=== PATIENT | male | born 1960 | race Caucasian/White ===

== ENCOUNTER 2018-02-12 17:39 | Inpatient (IN) | payer MEDICAID ==
[~2018-02-12] VITALS: Ht 180.3 cm; Wt 62.4 kg
[2018-02-12] MEDS ORDERED: methylPREDNISolone SOD SUCC 125 MG/2 ML ONE (18:11)
[2018-02-12] MEDS ORDERED: ALBUTEROL/IPRATROPIUM 2.5MG/0.5MG, 3 ML ONE (18:14)
[2018-02-12] MEDS ORDERED: ALBUTEROL SULFATE 2.5MG/0.5ML ONE (18:19)
[2018-02-12] MEDS ORDERED: IPRATROPIUM 0.5 MG/2.5 ML INHA ONE (18:19)
[2018-02-12 18:26] LABS: BASOPHILS # (AUTO) 0.03 x10^3/uL (0-0.1); BASOPHILS % (AUTO) 0 % (0-1); EOSINOPHILS # (AUTO) 0.07 x10^3/uL (0-0.4); EOSINOPHILS % (AUTO) 1 % (1-7); LYMPHOCYTES # (AUTO) 0.84 x10^3/uL (1-3.4); LYMPHOCYTES % (AUTO) 7 % (22-44); MD NO; MEAN CORPUSCULAR HEMOGLOBIN 32.4 pg (27.5-34.5); MEAN CORPUSCULAR HGB CONC 33.7 g/dL (33.2-36.2); MEAN CORPUSCULAR VOLUME 96.1 fL (81-97); MEAN PLATELET VOLUME 8.1 fL (7.4-10.4); MONOCYTES % (AUTO) 10 % (2-9); NEUTROPHILS # (AUTO) 9.76 x10^3/uL (1.8-6.8); NEUTROPHILS % (AUTO) 82 % (42-75); PLATELET COUNT 273 x10^3/uL (130-400); RED BLOOD COUNT 5.01 x10^6/uL (4.38-5.82); RED CELL DISTRIBUTION WIDTH 14.9 % (9.4-14.8)
[2018-02-12] MEDS ORDERED: ALBUTEROL SULFATE 2.5 MG/3 ML NPPB PRN (18:30)
[2018-02-12] MEDS ORDERED: methylPREDNISolone SOD SUCC 125 MG/2 ML IVP ONE (18:30)
[2018-02-12] MEDS ORDERED: IPRATROPIUM 0.5 MG/2.5 ML INHA NPPB SCH (18:30)
[2018-02-12] MEDS ORDERED: AZITHROMYCIN 500 MG in SODIUM CHLORIDE 0.9% 250 ML IVPB ONE (18:30)
[2018-02-12] MEDS ORDERED: PLEASE ENTER ALLERGIES MC SCH (18:30)
[2018-02-12 18:37] LABS: ALBUMIN 3.6 g/dL (3.4-5.0); ANION GAP 5 mmol/L (5-15); CALCIUM 8.7 mg/dL (8.5-10.1); CHLORIDE 104 mmol/L (98-107); CREATININE 0.85 mg/dL (0.7-1.3)
[2018-02-12 18:41] LABS: TROPONIN I < 0.015 ng/mL (0.000-0.045)
[2018-02-12] MEDS ORDERED: ALBUTEROL INH (19:34)
[2018-02-12] MEDS ORDERED: PRED20TA PO (19:34)
[2018-02-12] MEDS ORDERED: FLUT1DIS5 IH (19:34)
[2018-02-12] MEDS ORDERED: ONDANSETRON 2MG/ML, 2ML IVPush PRN (20:30)
[2018-02-12] MEDS ORDERED: POLYETHYLENE GLYCOL 17 GM PACKET PO PRN (20:30)
[2018-02-12] MEDS ORDERED: GUAIFENESIN/COD200MG-20MG/10ML LIQUID PO PRN (20:30)
[2018-02-12] MEDS ORDERED: ACETAMINOPHEN 325 MG TABLET PO PRN (20:30)
[2018-02-12] MEDS ORDERED: DOCUSATE 100 MG CAPSULE PO PRN (20:30)
[2018-02-12] MEDS: AZITHROMYCIN 500 MG in SODIUM CHLORIDE 0.9% 250 ML IV SCH (20:35)
[2018-02-12] MEDS ORDERED: TEMPLATE NON-FORMULARY MED. (Fluticasone/Salmeterol** (Advair 500-50 Diskus**) 1 PUFF) IH SCH (21:00)
[2018-02-12] MEDS ORDERED: ALBUTEROL/IPRATROPIUM 2.5MG/0.5MG, 3 ML NPPB PRN (21:30)
[2018-02-12 21:36] VITALS: BP 112/75
[2018-02-13 00:43] VITALS: BP 103/71
[2018-02-13] MEDS: CEFTRIAXONE PMX 1GM/50ML 50 ML IV SCH (00:47)
[2018-02-13] MEDS: ENOXAPARIN 40 MG/0.4 ML SQ SCH ×2 (00:47→19:56)
[2018-02-13] MEDS: ALBUTEROL/IPRATROPIUM 2.5MG/0.5MG, 3 ML NPPB SCH ×5 (02:20→22:45)
[2018-02-13] MEDS: methylPREDNISolone SOD SUCC 125 MG/2 ML IVPush SCH ×3 (03:11→19:56)
[2018-02-13 07:34] VITALS: BP 109/68
[2018-02-13] MEDS: BUDESONIDE 0.5 MG/2 ML INHA NPPB SCH ×2 (09:00→20:25)
[2018-02-13] MEDS: SENNA/DOCUSATE TABLET PO SCH (09:01)
[2018-02-13 13:01] VITALS: BP 116/76
[2018-02-13] MEDS ORDERED: ALBUTEROL SULFATE 2.5 MG/3 ML ONE (16:54)
[2018-02-13] MEDS ORDERED: ALBUTEROL SULFATE 2.5 MG/3 ML NPPB PRN (17:00)
[2018-02-13 19:45] VITALS: BP 102/62
[2018-02-13] MEDS: AZITHROMYCIN 500 MG in SODIUM CHLORIDE 0.9% 250 ML IV SCH (19:56)
[2018-02-13] MEDS: GUAIFENESIN ER 600 MG TABLET PO SCH (19:56)
[2018-02-13] MEDS: HYDROcodone/APAP 5/325 TABLET PO PRN (19:59)
[2018-02-13 21:43] VITALS: BP 113/78
[2018-02-14] MEDS: HYDROcodone/APAP 5/325 TABLET PO PRN ×4 (01:10→23:15)
[2018-02-14] MEDS: CEFTRIAXONE PMX 1GM/50ML 50 ML IV SCH (01:10)
[2018-02-14 02:01] VITALS: BP 95/64
[2018-02-14] MEDS: methylPREDNISolone SOD SUCC 125 MG/2 ML IVPush SCH ×3 (03:54→20:09)
[2018-02-14] MEDS: ALBUTEROL/IPRATROPIUM 2.5MG/0.5MG, 3 ML NPPB SCH ×6 (03:55→18:53)
[2018-02-14 07:07] VITALS: BP 127/75
[2018-02-14] MEDS: BUDESONIDE 0.5 MG/2 ML INHA NPPB SCH ×2 (07:45→11:50)
[2018-02-14] MEDS: GUAIFENESIN ER 600 MG TABLET PO SCH ×2 (09:00→20:09)
[2018-02-14] MEDS: SENNA/DOCUSATE TABLET PO SCH (09:00)
[2018-02-14 10:31] LABS: MEAN CORPUSCULAR HEMOGLOBIN 32.1 pg (27.5-34.5); MEAN CORPUSCULAR HGB CONC 33.3 g/dL (33.2-36.2); MEAN CORPUSCULAR VOLUME 96.4 fL (81-97); PLATELET COUNT 256 x10^3/uL (130-400); RED BLOOD COUNT 4.47 x10^6/uL (4.38-5.82); RED CELL DISTRIBUTION WIDTH 14.7 % (9.4-14.8)
[2018-02-14 10:40] LABS: ANION GAP 6 mmol/L (5-15); CALCIUM 8.7 mg/dL (8.5-10.1); CHLORIDE 100 mmol/L (98-107); CREATININE 0.72 mg/dL (0.7-1.3)
[2018-02-14 10:46] LABS: BASOPHILS % (AUTO) 0 % (0-1); EOSINOPHILS % (AUTO) 0 % (1-7); LYMPHOCYTES # (AUTO) 0.35 x10^3/uL (1-3.4); LYMPHOCYTES % (AUTO) 2 % (22-44); MD SCAN; MONOCYTES # (AUTO) 0.56 x10^3/uL (0.2-0.8); MONOCYTES % (AUTO) 4 % (2-9); NEUTROPHILS # (AUTO) 14.43 x10^3/uL (1.8-6.8); NEUTROPHILS % (AUTO) 94 % (42-75)
[2018-02-14 13:00] VITALS: BP 143/93
[2018-02-14 19:26] VITALS: BP 144/90
[2018-02-14] MEDS: ENOXAPARIN 40 MG/0.4 ML SQ SCH (20:09)
[2018-02-14] MEDS: AZITHROMYCIN 500 MG in SODIUM CHLORIDE 0.9% 250 ML IV SCH (20:09)
[2018-02-14] MEDS ORDERED: DIPHENHYDRAMINE 25 MG CAPSULE PO PRN (22:00)
[2018-02-14 22:46] LABS: RAPID INFLUENZA A Negative (Negative); RAPID INFLUENZA B Negative (Negative)
[2018-02-15] MEDS: CEFTRIAXONE PMX 1GM/50ML 50 ML IV SCH (02:29)
[2018-02-15 02:31] VITALS: BP 129/71
[2018-02-15] MEDS: ALBUTEROL/IPRATROPIUM 2.5MG/0.5MG, 3 ML NPPB SCH ×4 (02:51→14:01)
[2018-02-15] MEDS: HYDROcodone/APAP 5/325 TABLET PO PRN ×2 (05:20→09:59)
[2018-02-15] MEDS: methylPREDNISolone SOD SUCC 125 MG/2 ML IVPush SCH (05:20)
[2018-02-15 07:15] VITALS: BP 107/72
[2018-02-15] MEDS: SENNA/DOCUSATE TABLET PO SCH (08:50)
[2018-02-15] MEDS ORDERED: PRED20TA PO (08:54)
[2018-02-15] MEDS ORDERED: CEFD300C37 PO (08:54)
[2018-02-15] MEDS ORDERED: AZIT250T89 PO (08:54)
[2018-02-15] MEDS: BUDESONIDE 0.5 MG/2 ML INHA NPPB SCH (09:00)
[2018-02-15] MEDS: GUAIFENESIN ER 600 MG TABLET PO SCH (09:59)
[2018-02-15 12:54] VITALS: BP 121/89
== END 2018-02-15 16:48 | disposition home or self-care (01) | DRG 189 ==
LOC: EDBD 17:39 → ED 20:01 → EDIP 20:12 → SUATTDRO 20:14 → 3NE 22:21
PROVIDERS: ADMIT Family Medicine; ATTEND Family Medicine
DX: J96.20 Acute and chronic respiratory failure, unspecified whether with hypoxia or hypercapnia (principal); J44.1 Chronic obstructive pulmonary disease with (acute) exacerbation; D72.829 Elevated white blood cell count, unspecified; T38.0X5A Adverse effect of glucocorticoids and synthetic analogues, initial encounter; Z80.6 Family history of leukemia; Z82.49 Family history of ischemic heart disease and other diseases of the circulatory system; Z87.891 Personal history of nicotine dependence; Z99.81 Dependence on supplemental oxygen; Y92.89 Other specified places as the place of occurrence of the external cause
CPT/HCPCS: 36415; 36600; 87400; 99291; J7613; J7620; J7626; J7644; 71045; 80048; 82040; 82803; 84484; 85025; 93005; 94640; 94644; 96365; 96366; 96375; G0378; J0456; J0696; J1650; J2930; J7050; Q0163

== ENCOUNTER 2018-02-15 21:24 | Inpatient (IN) | payer MEDICAID ==
[~2018-02-15] VITALS: Ht 172.7 cm; Wt 65.9 kg
[~2018-02-15 21:24] MED LIST: ALBUTEROL INH; AZIT250T89 PO; CEFD300C37 PO; ETOMIDATE 20 MG/10 ML ONE; FLUT1DIS5 IH; PRED20TA PO; PROPOFOL 10 MG/ML, 100ML IV ONE; SUCCINYLCHOLINE 20 MG/ML, 10ML ONE
[2018-02-15] MEDS ORDERED: SODIUM CHLORIDE 0.9% 1,000 ML IV ONE (21:29)
[2018-02-15] MEDS ORDERED: IPRATROPIUM 0.5 MG/2.5 ML INHA NPPB PRN (21:30)
[2018-02-15] MEDS ORDERED: methylPREDNISolone SOD SUCC 125 MG/2 ML IVP ONE (21:30)
[2018-02-15] MEDS ORDERED: SODIUM CHLORIDE FLUSH 10ML SYR IVF ONE (21:30)
[2018-02-15] MEDS ORDERED: ALBUTEROL 0.5%, 20ML NPPB SCH (21:30)
[2018-02-15] MEDS ORDERED: LORazepam 2 MG/ML, 1ML IVP ONE (21:30)
[2018-02-15] MEDS ORDERED: methylPREDNISolone SOD SUCC 125 MG/2 ML ONE (21:31)
[2018-02-15] MEDS ORDERED: ALBUTEROL SULFATE 2.5 MG/3 ML ONE (21:36)
[2018-02-15] MEDS ORDERED: ALBUTEROL SULFATE 2.5 MG/3 ML NPPB SCH (21:45)
[2018-02-15] MEDS ORDERED: LORazepam 2 MG/ML, 1ML ONE (21:45)
[2018-02-15 22:01] LABS: MEAN CORPUSCULAR HEMOGLOBIN 32.4 pg (27.5-34.5); MEAN CORPUSCULAR HGB CONC 33.1 g/dL (33.2-36.2); MEAN CORPUSCULAR VOLUME 97.6 fL (81-97); MEAN PLATELET VOLUME 8.2 fL (7.4-10.4); PLATELET COUNT 332 x10^3/uL (130-400); RED BLOOD COUNT 4.73 x10^6/uL (4.38-5.82); RED CELL DISTRIBUTION WIDTH 15.3 % (9.4-14.8)
[2018-02-15] MEDS ORDERED: PROPOFOL 100 ML IV PRN (22:07)
[2018-02-15 22:13] LABS: ALBUMIN 3.6 g/dL (3.4-5.0); ANION GAP 3 mmol/L (5-15); CALCIUM 8.8 mg/dL (8.5-10.1); CHLORIDE 98 mmol/L (98-107)
[2018-02-15 22:18] LABS: ALANINE AMINOTRANSFERASE 43 U/L (12-78); ALKALINE PHOSPHATASE 70 U/L (45-117); BILIRUBIN,TOTAL 0.4 mg/dL (0.2-1.0); CREATININE 0.77 mg/dL (0.7-1.3); TOTAL PROTEIN 7.3 g/dL (6.4-8.2); TROPONIN I < 0.015 ng/mL (0.000-0.045)
[2018-02-15 22:23] LABS: BASOPHILS # (AUTO) 0.01 x10^3/uL (0-0.1); BASOPHILS % (AUTO) 0 % (0-1); EOSINOPHILS % (AUTO) 0 % (1-7); LYMPHOCYTES # (AUTO) 0.81 x10^3/uL (1-3.4); LYMPHOCYTES % (AUTO) 5 % (22-44); MD SCAN; MONOCYTES % (AUTO) 10 % (2-9); NEUTROPHILS # (AUTO) 14.05 x10^3/uL (1.8-6.8); NEUTROPHILS % (AUTO) 85 % (42-75)
[2018-02-15] MEDS ORDERED: ETOMIDATE 20 MG/10 ML IV ONE (22:30)
[2018-02-15] MEDS ORDERED: SUCCINYLCHOLINE 20 MG/ML, 10ML IVPush ONE (22:30)
[2018-02-15] MEDS ORDERED: POLYETHYLENE GLYCOL 17 GM PACKET PO PRN (23:00)
[2018-02-15] MEDS ORDERED: PROMETHAZINE 25 MG/ML, 1ML IM PRN (23:00)
[2018-02-15] MEDS ORDERED: ACETAMINOPHEN 325 MG TABLET PO PRN (23:00)
[2018-02-15] MEDS ORDERED: DOCUSATE 100 MG CAPSULE PO PRN (23:00)
[2018-02-15] MEDS ORDERED: ONDANSETRON 2MG/ML, 2ML IVPush PRN (23:00)
[2018-02-15] MEDS ORDERED: morphine SULFATE 10 MG/ML, 1ML IVPush PRN (23:00)
[2018-02-15] MEDS ORDERED: LABETALOL 5MG/ML, 20ML IVPush PRN (23:00)
[2018-02-15] MEDS ORDERED: hydrALAzine 20 MG/ML, 1ML IVPush PRN (23:00)
[2018-02-15] MEDS ORDERED: BISACODYL 10 MG SUPP PR PRN ×2 (23:00→23:30)
[2018-02-15] MEDS ORDERED: ONDANSETRON ODT 4 MG PO PRN (23:00)
[2018-02-15] MEDS ORDERED: NOREPINEPHRINE 4 MG in SODIUM CHLORIDE 0.9% 246 ML IV PRN (23:18)
[2018-02-15] MEDS ORDERED: FENTANYL PF 2,500 MCG in SODIUM CHLORIDE 0.9% 200 ML IV PRN (23:18)
[2018-02-15] MEDS ORDERED: SODIUM CHLORIDE 0.9% 1,000 ML IV SCH (23:18)
[2018-02-15] MEDS ORDERED: DEXTROSE 50%, 50ML SYRINGE IVPush PRN (23:30)
[2018-02-15] MEDS ORDERED: HEPARIN 5,000 UNITS/ML, 1ML SQ SCH (23:30)
[2018-02-15] MEDS ORDERED: LIDOCAINE-MPF 1%, 2ML ENDO PRN (23:30)
[2018-02-15] MEDS ORDERED: DEXTROSE 4 GM TAB.CHEW PO PRN (23:30)
[2018-02-15] MEDS: IPRATROPIUM 0.5 MG/2.5 ML INHA INLINE SCH (23:30)
[2018-02-15] MEDS ORDERED: GLUCAGON 1 MG IM PRN (23:30)
[2018-02-15] MEDS ORDERED: ALBUTEROL 0.5%, 20ML NPPBCONT SCH (23:30)
[2018-02-15] MEDS ORDERED: Albuterol Continuous Neb. Aerogen Syringe 50mg/60ml INLINE PRN (23:30)
[2018-02-15] MEDS ORDERED: SENNA/DOCUSATE TABLET NG PRN (23:30)
[2018-02-15] MEDS ORDERED: ALBUMIN HUMAN 5% 500 ML IV ONE (23:30)
[2018-02-15] MEDS ORDERED: SENNOSIDES 8.8 MG/5 ML ORAL SOL NG PRN (23:30)
[2018-02-15] MEDS ORDERED: PHARMACY MAY ADJ FOR RENAL FX MC SCH (23:30)
[2018-02-15] MEDS ORDERED: SODIUM CHLORIDE 0.9% 1,000ML IVBOLUS ONE (23:30)
[2018-02-15] MEDS ORDERED: LACTULOSE 20 GM/30 ML UDC NG PRN (23:30)
[2018-02-15] MEDS: ALBUTEROL/IPRATROPIUM 2.5MG/0.5MG, 3 ML INLINE SCH (23:30)
[2018-02-15] MEDS: DOXYCYCLINE 100 MG in DEXTROSE 5% 250 ML IV SCH (23:43)
[2018-02-15] MEDS: SODIUM CHLORIDE 0.9% 1,000 ML IV SCH (23:43)
[2018-02-15] MEDS ORDERED: PHARMACOKINETIC MONITORING MC PRN (23:45)
[2018-02-15] MEDS ORDERED: PHARMACOKINETIC CONSULTATION MC ONE (23:45)
[2018-02-15] MEDS: FAMOTIDINE 20 MG/2 ML IVPush SCH (23:45)
[2018-02-15] MEDS: HEPARIN 5,000 UNITS/ML, 1ML SQ SCH (23:46)
[2018-02-16] MEDS ORDERED: VANCOMYCIN 1,200 MG in SODIUM CHLORIDE 0.9% 250 ML IV ONE
[2018-02-16] MEDS ORDERED: VANCOMYCIN PER PHARMACY MC PRN
[2018-02-16 00:04] LABS: BASOPHILS % (AUTO) 0 % (0-1); EOSINOPHILS # (AUTO) 0.11 x10^3/uL (0-0.4); EOSINOPHILS % (AUTO) 1 % (1-7); LYMPHOCYTES # (AUTO) 0.18 x10^3/uL (1-3.4); LYMPHOCYTES % (AUTO) 1 % (22-44); MD NO; MEAN CORPUSCULAR HEMOGLOBIN 32.3 pg (27.5-34.5); MEAN PLATELET VOLUME 7.9 fL (7.4-10.4); MONOCYTES # (AUTO) 0.62 x10^3/uL (0.2-0.8); MONOCYTES % (AUTO) 5 % (2-9); NEUTROPHILS # (AUTO) 12.57 x10^3/uL (1.8-6.8); NEUTROPHILS % (AUTO) 93 % (42-75); PLATELET COUNT 261 x10^3/uL (130-400); RED BLOOD COUNT 4.29 x10^6/uL (4.38-5.82); RED CELL DISTRIBUTION WIDTH 14.8 % (9.4-14.8)
[2018-02-16 00:14] LABS: INTERNATIONAL NORMALIZED RATIO 1.01 (0.93-1.1); PROTHROMBIN TIME 10.7 Seconds (9.6-11.5)
[2018-02-16 00:16] LABS: ACETAMINOPHEN < 2 mcg/mL (10-30); ANION GAP 3 mmol/L (5-15); CALCIUM 8.2 mg/dL (8.5-10.1); CHLORIDE 100 mmol/L (98-107); CREATININE 0.92 mg/dL (0.7-1.3); SALICYLATE LEVEL < 1.7 mg/dL (2.8-20.0); TRIGLYCERIDES 88 mg/dL (50-200)
[2018-02-16 00:20] LABS: TROPONIN I < 0.015 ng/mL (0.000-0.045)
[2018-02-16 00:34] LABS: HEMOGLOBIN A1C 5.9 % (4.2-6.3)
[2018-02-16] MEDS: FENTANYL PF 100 MCG/2ML IVPush PRN ×5 (00:40→22:48)
[2018-02-16 00:42] LABS: FREE T4 (FREE THYROXINE) 0.99 ng/dL (0.76-1.46)
[2018-02-16] MEDS: PIPERACILLIN/TAZO/PMX 3.375GM 50 ML IV SCH ×2 (00:42→06:08)
[2018-02-16 01:40] VITALS: BP 98/56
[2018-02-16] MEDS: IPRATROPIUM 0.5 MG/2.5 ML INHA INLINE SCH (03:30)
[2018-02-16] MEDS: methylPREDNISolone SOD SUCC 125 MG/2 ML IVPush SCH ×4 (03:35→20:58)
[2018-02-16] MEDS: PROPOFOL 100 ML IV PRN ×4 (03:38→19:15)
[2018-02-16] MEDS: ALBUTEROL/IPRATROPIUM 2.5MG/0.5MG, 3 ML INLINE SCH ×6 (03:40→22:31)
[2018-02-16 04:00] VITALS: BP 92/62
[2018-02-16 05:50] LABS: BASOPHILS % (AUTO) 0 % (0-1); EOSINOPHILS # (AUTO) 0.16 x10^3/uL (0-0.4); EOSINOPHILS % (AUTO) 1 % (1-7); LYMPHOCYTES # (AUTO) 0.37 x10^3/uL (1-3.4); LYMPHOCYTES % (AUTO) 3 % (22-44); MD NO; MEAN CORPUSCULAR HEMOGLOBIN 32.6 pg (27.5-34.5); MEAN CORPUSCULAR VOLUME 98.8 fL (81-97); MEAN PLATELET VOLUME 8.5 fL (7.4-10.4); MONOCYTES # (AUTO) 0.79 x10^3/uL (0.2-0.8); MONOCYTES % (AUTO) 6 % (2-9); NEUTROPHILS # (AUTO) 11.06 x10^3/uL (1.8-6.8); NEUTROPHILS % (AUTO) 89 % (42-75); PLATELET COUNT 244 x10^3/uL (130-400); RED BLOOD COUNT 4.11 x10^6/uL (4.38-5.82); RED CELL DISTRIBUTION WIDTH 15.1 % (9.4-14.8)
[2018-02-16 06:11] LABS: ALANINE AMINOTRANSFERASE 43 U/L (12-78); ALBUMIN 3.1 g/dL (3.4-5.0); ANION GAP 10 mmol/L (5-15); CHLORIDE 102 mmol/L (98-107); CHOLESTEROL, TOTAL 127 mg/dL (140-239); CREATININE 1.05 mg/dL (0.7-1.3)
[2018-02-16 06:16] LABS: ALKALINE PHOSPHATASE 53 U/L (45-117); BILIRUBIN,TOTAL 0.6 mg/dL (0.2-1.0); CHOL/HDL RATIO 2.1; HDL CHOL % 48 % (26-37); HDL CHOLESTEROL (DIRECT) 61 mg/dL (40-60); LDL CHOLESTEROL,CALCULATED 44 mg/dL (54-169); LDL/HDL RATIO 0.7 (0.5-3.0); TOTAL PROTEIN 5.9 g/dL (6.4-8.2); TRIGLYCERIDES 109 mg/dL (50-200); TROPONIN I < 0.015 ng/mL (0.000-0.045); VLDL CHOLESTEROL 22 mg/dL (0-25)
[2018-02-16] MEDS ORDERED: INSULIN REGULAR 100 UNITS/ML, 3ML VIAL SQ-INSULIN SCH (07:00)
[2018-02-16] MEDS: FAMOTIDINE 20 MG/2 ML IVPush SCH ×2 (08:51→20:58)
[2018-02-16] MEDS: HEPARIN 5,000 UNITS/ML, 1ML SQ SCH ×2 (08:51→16:51)
[2018-02-16] MEDS: SODIUM CHLORIDE FLUSH 10ML SYR IVF SCH ×2 (08:52→21:08)
[2018-02-16] MEDS: DOXYCYCLINE 100 MG in DEXTROSE 5% 250 ML IV SCH ×2 (11:52→22:42)
[2018-02-16] MEDS: SODIUM CHLORIDE 0.9% 1,000 ML IV SCH (21:00)
[2018-02-17] MEDS: PROPOFOL 100 ML IV PRN ×4 (00:44→17:10)
[2018-02-17] MEDS: HEPARIN 5,000 UNITS/ML, 1ML SQ SCH ×3 (00:44→15:17)
[2018-02-17] MEDS: ALBUTEROL/IPRATROPIUM 2.5MG/0.5MG, 3 ML INLINE SCH ×6 (02:36→22:43)
[2018-02-17] MEDS: methylPREDNISolone SOD SUCC 125 MG/2 ML IVPush SCH ×4 (03:52→21:06)
[2018-02-17 03:57] VITALS: BP 93/61
[2018-02-17] MEDS: FENTANYL PF 100 MCG/2ML IVPush PRN (04:22)
[2018-02-17 05:08] LABS: BASOPHILS % (AUTO) 0 % (0-1); EOSINOPHILS % (AUTO) 0 % (1-7); LYMPHOCYTES # (AUTO) 0.45 x10^3/uL (1-3.4); LYMPHOCYTES % (AUTO) 7 % (22-44); MD NO; MEAN CORPUSCULAR HEMOGLOBIN 32.3 pg (27.5-34.5); MEAN CORPUSCULAR HGB CONC 33.4 g/dL (33.2-36.2); MEAN CORPUSCULAR VOLUME 96.7 fL (81-97); MEAN PLATELET VOLUME 8.4 fL (7.4-10.4); MONOCYTES # (AUTO) 0.69 x10^3/uL (0.2-0.8); MONOCYTES % (AUTO) 10 % (2-9); NEUTROPHILS # (AUTO) 5.59 x10^3/uL (1.8-6.8); NEUTROPHILS % (AUTO) 83 % (42-75); PLATELET COUNT 243 x10^3/uL (130-400); RED BLOOD COUNT 3.77 x10^6/uL (4.38-5.82); RED CELL DISTRIBUTION WIDTH 15.8 % (9.4-14.8)
[2018-02-17 06:10] LABS: MICROSCOPIC NOT IND
[2018-02-17 06:12] LABS: CULTURE INDICATED? NO
[2018-02-17 06:39] LABS: AMPHETAMINE SCREEN, URINE Negative (Negative); BARBITURATE SCREEN, URINE Negative (Negative); BENZODIAZEPINE SCREEN, URINE Negative (Negative); CANNABINOID SCREEN, URINE Positive (Negative); COCAINE SCREEN, URINE Negative (Negative); METHADONE SCREEN, URINE Negative (Negative); OPIATE SCREEN, URINE Negative (Negative)
[2018-02-17] MEDS: FAMOTIDINE 20 MG/2 ML IVPush SCH ×2 (08:34→21:06)
[2018-02-17] MEDS: SODIUM CHLORIDE FLUSH 10ML SYR IVF SCH ×2 (08:34→21:07)
[2018-02-17] MEDS: DOXYCYCLINE 100 MG in DEXTROSE 5% 250 ML IV SCH ×2 (11:28→23:02)
[2018-02-17] MEDS: MIDAZOLAM HCL 50 MG in SODIUM CHLORIDE 0.9% 240 ML IV PRN ×2 (11:29→23:02)
[2018-02-17] MEDS ORDERED: ERGOCALCIFEROL 50,000 UNIT CAPSULE PO SCH (12:30)
[2018-02-18] MEDS: HEPARIN 5,000 UNITS/ML, 1ML SQ SCH ×3 (01:13→15:07)
[2018-02-18] MEDS: PROPOFOL 100 ML IV PRN (02:39)
[2018-02-18] MEDS: ALBUTEROL/IPRATROPIUM 2.5MG/0.5MG, 3 ML INLINE SCH ×3 (02:48→10:10)
[2018-02-18] MEDS: methylPREDNISolone SOD SUCC 125 MG/2 ML IVPush SCH ×4 (03:38→21:27)
[2018-02-18 05:04] LABS: BASOPHILS % (AUTO) 0 % (0-1); EOSINOPHILS % (AUTO) 0 % (1-7); LYMPHOCYTES # (AUTO) 0.29 x10^3/uL (1-3.4); LYMPHOCYTES % (AUTO) 5 % (22-44); MD NO; MEAN CORPUSCULAR HEMOGLOBIN 32.2 pg (27.5-34.5); MEAN CORPUSCULAR HGB CONC 33.3 g/dL (33.2-36.2); MEAN CORPUSCULAR VOLUME 96.5 fL (81-97); MEAN PLATELET VOLUME 8.3 fL (7.4-10.4); MONOCYTES % (AUTO) 9 % (2-9); NEUTROPHILS # (AUTO) 5.06 x10^3/uL (1.8-6.8); NEUTROPHILS % (AUTO) 86 % (42-75); PLATELET COUNT 250 x10^3/uL (130-400); RED BLOOD COUNT 3.91 x10^6/uL (4.38-5.82); RED CELL DISTRIBUTION WIDTH 14.9 % (9.4-14.8)
[2018-02-18 07:24] LABS: ANION GAP 7 mmol/L (5-15); CALCIUM 8.4 mg/dL (8.5-10.1); CHLORIDE 103 mmol/L (98-107); CREATININE 0.58 mg/dL (0.7-1.3)
[2018-02-18] MEDS: FAMOTIDINE 20 MG/2 ML IVPush SCH ×2 (08:42→21:27)
[2018-02-18] MEDS: SODIUM CHLORIDE FLUSH 10ML SYR IVF SCH ×2 (08:42→21:27)
[2018-02-18] MEDS: DOXYCYCLINE 100 MG in DEXTROSE 5% 250 ML IV SCH ×2 (10:50→23:10)
[2018-02-18] MEDS: ALBUTEROL/IPRATROPIUM 2.5MG/0.5MG, 3 ML NPPB SCH ×3 (15:30→23:00)
[2018-02-18] MEDS: HYDROcodone/APAP 5/325 TABLET PO PRN (21:41)
[2018-02-19] MEDS: HEPARIN 5,000 UNITS/ML, 1ML SQ SCH ×4 (00:37→23:30)
[2018-02-19] MEDS: methylPREDNISolone SOD SUCC 125 MG/2 ML IVPush SCH ×2 (03:26→08:43)
[2018-02-19 04:37] LABS: BASOPHILS % (AUTO) 0 % (0-1); EOSINOPHILS # (AUTO) 0.05 x10^3/uL (0-0.4); EOSINOPHILS % (AUTO) 1 % (1-7); LYMPHOCYTES # (AUTO) 0.35 x10^3/uL (1-3.4); LYMPHOCYTES % (AUTO) 4 % (22-44); MD NO; MEAN CORPUSCULAR HEMOGLOBIN 32.6 pg (27.5-34.5); MEAN CORPUSCULAR HGB CONC 34.1 g/dL (33.2-36.2); MEAN CORPUSCULAR VOLUME 95.9 fL (81-97); MEAN PLATELET VOLUME 7.8 fL (7.4-10.4); MONOCYTES # (AUTO) 0.68 x10^3/uL (0.2-0.8); MONOCYTES % (AUTO) 7 % (2-9); NEUTROPHILS # (AUTO) 8.34 x10^3/uL (1.8-6.8); NEUTROPHILS % (AUTO) 89 % (42-75); PLATELET COUNT 292 x10^3/uL (130-400); RED BLOOD COUNT 4.08 x10^6/uL (4.38-5.82)
[2018-02-19] MEDS: ALBUTEROL/IPRATROPIUM 2.5MG/0.5MG, 3 ML NPPB SCH ×5 (08:30→22:20)
[2018-02-19] MEDS: FAMOTIDINE 20 MG/2 ML IVPush SCH ×2 (08:36→20:46)
[2018-02-19] MEDS: SODIUM CHLORIDE FLUSH 10ML SYR IVF SCH ×2 (08:37→20:46)
[2018-02-19 08:40] LABS: ANION GAP 8 mmol/L (5-15); CALCIUM 8.5 mg/dL (8.5-10.1); CHLORIDE 101 mmol/L (98-107); CREATININE 0.69 mg/dL (0.7-1.3)
[2018-02-19 09:32] VITALS: BP 141/77
[2018-02-19] MEDS: DOXYCYCLINE 100 MG in DEXTROSE 5% 250 ML IV SCH ×2 (11:55→23:30)
[2018-02-19 14:00] VITALS: BP 131/89
[2018-02-19 18:57] VITALS: BP 136/98
[2018-02-19] MEDS: DIPHENHYDRAMINE 50 MG CAPSULE PO PRN (20:45)
[2018-02-19] MEDS: CEFTRIAXONE PMX 2GM/50ML 50 ML IV SCH (20:45)
[2018-02-19] MEDS ORDERED: LORazepam 1MG TABLET PO ONE (22:00)
[2018-02-20 06:13] LABS: BASOPHILS # (AUTO) 0.01 x10^3/uL (0-0.1); BASOPHILS % (AUTO) 0 % (0-1); EOSINOPHILS # (AUTO) 0.11 x10^3/uL (0-0.4); EOSINOPHILS % (AUTO) 1 % (1-7); LYMPHOCYTES # (AUTO) 0.87 x10^3/uL (1-3.4); LYMPHOCYTES % (AUTO) 10 % (22-44); MD NO; MEAN CORPUSCULAR HEMOGLOBIN 32.3 pg (27.5-34.5); MEAN CORPUSCULAR HGB CONC 33.2 g/dL (33.2-36.2); MEAN CORPUSCULAR VOLUME 97.5 fL (81-97); MEAN PLATELET VOLUME 8.1 fL (7.4-10.4); MONOCYTES # (AUTO) 0.99 x10^3/uL (0.2-0.8); MONOCYTES % (AUTO) 11 % (2-9); NEUTROPHILS # (AUTO) 7.05 x10^3/uL (1.8-6.8); NEUTROPHILS % (AUTO) 78 % (42-75); PLATELET COUNT 281 x10^3/uL (130-400); RED BLOOD COUNT 4.16 x10^6/uL (4.38-5.82); RED CELL DISTRIBUTION WIDTH 14.6 % (9.4-14.8)
[2018-02-20 06:14] LABS: CHLORIDE 101 mmol/L (98-107)
[2018-02-20 06:20] LABS: ALANINE AMINOTRANSFERASE 66 U/L (12-78); ALBUMIN 2.9 g/dL (3.4-5.0); ALKALINE PHOSPHATASE 49 U/L (45-117); ANION GAP 5 mmol/L (5-15); BILIRUBIN,TOTAL 0.4 mg/dL (0.2-1.0); CREATININE 0.54 mg/dL (0.7-1.3); TOTAL PROTEIN 5.8 g/dL (6.4-8.2)
[2018-02-20 06:40] VITALS: BP 130/97
[2018-02-20] MEDS: ALBUTEROL/IPRATROPIUM 2.5MG/0.5MG, 3 ML NPPB SCH ×5 (06:50→22:20)
[2018-02-20] MEDS: SODIUM CHLORIDE FLUSH 10ML SYR IVF SCH ×2 (08:34→21:03)
[2018-02-20] MEDS: FAMOTIDINE 20 MG/2 ML IVPush SCH ×2 (08:34→21:02)
[2018-02-20] MEDS: HEPARIN 5,000 UNITS/ML, 1ML SQ SCH ×3 (08:34→23:34)
[2018-02-20] MEDS: DOXYCYCLINE 100 MG in DEXTROSE 5% 250 ML IV SCH ×2 (12:01→23:34)
[2018-02-20 14:40] VITALS: BP 134/86
[2018-02-20] MEDS ORDERED: ASA/APAP/ CAFFEINE TABLET PO PRN (18:30)
[2018-02-20 19:40] VITALS: BP 107/74
[2018-02-20] MEDS: TRAZODONE 100MG TABLET PO PRN (21:02)
[2018-02-20] MEDS: CEFTRIAXONE PMX 2GM/50ML 50 ML IV SCH (21:03)
[2018-02-21] MEDS: DIPHENHYDRAMINE 50 MG CAPSULE PO PRN (00:35)
[2018-02-21 00:37] VITALS: BP 102/67
[2018-02-21] MEDS: HYDROcodone/APAP 5/325 TABLET PO PRN (02:17)
[2018-02-21] MEDS: ALBUTEROL/IPRATROPIUM 2.5MG/0.5MG, 3 ML NPPB SCH ×5 (06:50→23:10)
[2018-02-21 06:57] VITALS: BP 119/83
[2018-02-21 07:42] LABS: MEAN CORPUSCULAR HEMOGLOBIN 31.9 pg (27.5-34.5); MEAN CORPUSCULAR HGB CONC 32.8 g/dL (33.2-36.2); MEAN CORPUSCULAR VOLUME 97.2 fL (81-97); MEAN PLATELET VOLUME 7.7 fL (7.4-10.4); PLATELET COUNT 300 x10^3/uL (130-400); RED BLOOD COUNT 4.37 x10^6/uL (4.38-5.82); RED CELL DISTRIBUTION WIDTH 15.1 % (9.4-14.8)
[2018-02-21 08:01] LABS: BASOPHILS # (AUTO) 0.03 x10^3/uL (0-0.1); BASOPHILS % (AUTO) 0 % (0-1); EOSINOPHILS % (AUTO) 1 % (1-7); LYMPHOCYTES # (AUTO) 1.52 x10^3/uL (1-3.4); LYMPHOCYTES % (AUTO) 14 % (22-44); MD SCAN; MONOCYTES # (AUTO) 1.45 x10^3/uL (0.2-0.8); MONOCYTES % (AUTO) 13 % (2-9); NEUTROPHILS # (AUTO) 8.18 x10^3/uL (1.8-6.8); NEUTROPHILS % (AUTO) 73 % (42-75)
[2018-02-21] MEDS: HEPARIN 5,000 UNITS/ML, 1ML SQ SCH ×2 (08:52→17:24)
[2018-02-21] MEDS: SODIUM CHLORIDE FLUSH 10ML SYR IVF SCH ×2 (08:53→21:39)
[2018-02-21] MEDS: FAMOTIDINE 20 MG/2 ML IVPush SCH (08:53)
[2018-02-21 08:57] LABS: ANION GAP 5 mmol/L (5-15); CALCIUM 8.1 mg/dL (8.5-10.1); CHLORIDE 102 mmol/L (98-107); CREATININE 0.76 mg/dL (0.7-1.3); TRIGLYCERIDES 124 mg/dL (50-200)
[2018-02-21] MEDS: DOXYCYCLINE 100 MG in DEXTROSE 5% 250 ML IV SCH (12:18)
[2018-02-21 12:45] VITALS: BP 131/89
[2018-02-21] MEDS ORDERED: TEMAZEPAM 15 MG CAPSULE PO PRN (13:30)
[2018-02-21] MEDS ORDERED: MAGNESIUM SULFATE 4 GM in SODIUM CHLORIDE 0.9% 100 ML IV ONE (13:30)
[2018-02-21] MEDS ORDERED: MAGNESIUM SULFATE PMX 4GM/100M 100 ML IV ONE (13:30)
[2018-02-21 18:58] VITALS: BP 125/89
[2018-02-21] MEDS: TRAZODONE 100MG TABLET PO PRN (21:39)
[2018-02-21] MEDS: CEFTRIAXONE PMX 2GM/50ML 50 ML IV SCH (21:39)
[2018-02-22] MEDS: DOXYCYCLINE 100 MG in DEXTROSE 5% 250 ML IV SCH (00:28)
[2018-02-22] MEDS: HEPARIN 5,000 UNITS/ML, 1ML SQ SCH ×4 (00:32→23:50)
[2018-02-22 01:03] VITALS: BP 103/62
[2018-02-22 05:57] LABS: MEAN CORPUSCULAR HGB CONC 32.9 g/dL (33.2-36.2); MEAN CORPUSCULAR VOLUME 97.5 fL (81-97); PLATELET COUNT 307 x10^3/uL (130-400); RED BLOOD COUNT 4.01 x10^6/uL (4.38-5.82); RED CELL DISTRIBUTION WIDTH 15.3 % (9.4-14.8)
[2018-02-22 06:26] LABS: BASOPHILS % (AUTO) 0 % (0-1); EOSINOPHILS # (AUTO) 0.09 x10^3/uL (0-0.4); EOSINOPHILS % (AUTO) 1 % (1-7); LYMPHOCYTES # (AUTO) 1.09 x10^3/uL (1-3.4); LYMPHOCYTES % (AUTO) 8 % (22-44); MD SCAN; MONOCYTES # (AUTO) 1.25 x10^3/uL (0.2-0.8); MONOCYTES % (AUTO) 10 % (2-9); NEUTROPHILS # (AUTO) 10.56 x10^3/uL (1.8-6.8); NEUTROPHILS % (AUTO) 81 % (42-75)
[2018-02-22 06:45] VITALS: BP 97/71
[2018-02-22] MEDS: ALBUTEROL/IPRATROPIUM 2.5MG/0.5MG, 3 ML NPPB SCH ×5 (06:45→23:10)
[2018-02-22] MEDS: DOXYCYCLINE 100MG CAP PO SCH ×2 (08:02→21:18)
[2018-02-22] MEDS: SODIUM CHLORIDE FLUSH 10ML SYR IVF SCH ×2 (08:03→21:19)
[2018-02-22 12:33] VITALS: BP 127/75
[2018-02-22 18:55] VITALS: BP 104/53
[2018-02-22] MEDS: TRAZODONE 100MG TABLET PO PRN (23:50)
[2018-02-23 01:26] VITALS: BP 106/69
[2018-02-23 06:01] LABS: MEAN CORPUSCULAR HEMOGLOBIN 32.3 pg (27.5-34.5); MEAN CORPUSCULAR HGB CONC 33.4 g/dL (33.2-36.2); MEAN CORPUSCULAR VOLUME 96.9 fL (81-97); MEAN PLATELET VOLUME 7.6 fL (7.4-10.4); PLATELET COUNT 338 x10^3/uL (130-400); RED BLOOD COUNT 4.03 x10^6/uL (4.38-5.82)
[2018-02-23 06:23] LABS: BASOPHILS # (AUTO) 0.03 x10^3/uL (0-0.1); BASOPHILS % (AUTO) 0 % (0-1); EOSINOPHILS # (AUTO) 0.21 x10^3/uL (0-0.4); EOSINOPHILS % (AUTO) 2 % (1-7); LYMPHOCYTES # (AUTO) 1.73 x10^3/uL (1-3.4); LYMPHOCYTES % (AUTO) 13 % (22-44); MD SCAN; MONOCYTES # (AUTO) 1.33 x10^3/uL (0.2-0.8); MONOCYTES % (AUTO) 10 % (2-9); NEUTROPHILS # (AUTO) 9.84 x10^3/uL (1.8-6.8); NEUTROPHILS % (AUTO) 75 % (42-75)
[2018-02-23] MEDS: ALBUTEROL/IPRATROPIUM 2.5MG/0.5MG, 3 ML NPPB SCH ×5 (07:00→23:10)
[2018-02-23 07:56] VITALS: BP 108/73
[2018-02-23] MEDS: HEPARIN 5,000 UNITS/ML, 1ML SQ SCH ×3 (08:05→23:57)
[2018-02-23] MEDS: DOXYCYCLINE 100MG CAP PO SCH ×2 (08:05→21:03)
[2018-02-23] MEDS: SODIUM CHLORIDE FLUSH 10ML SYR IVF SCH ×2 (08:06→21:03)
[2018-02-23 20:10] VITALS: BP 102/77
[2018-02-24 00:15] VITALS: BP 107/75
[2018-02-24 06:54] VITALS: BP 109/78
[2018-02-24] MEDS: ALBUTEROL/IPRATROPIUM 2.5MG/0.5MG, 3 ML NPPB SCH (07:15)
[2018-02-24] MEDS: HEPARIN 5,000 UNITS/ML, 1ML SQ SCH (07:59)
[2018-02-24] MEDS: SODIUM CHLORIDE FLUSH 10ML SYR IVF SCH (08:00)
[2018-02-24] MEDS: DOXYCYCLINE 100MG CAP PO SCH (08:00)
[2018-02-24] MEDS ORDERED: IPRA3AMP30 NPPB (10:28)
[2018-02-24] MEDS ORDERED: ERGO500017 PO (10:28)
[2018-02-24] MEDS ORDERED: PRED20TA PO (10:28)
[2018-02-24 13:13] VITALS: BP 121/60
== END 2018-02-24 14:15 | disposition home or self-care (01) | DRG 208 ==
LOC: ED 21:41 → EDIP 22:22 → CCU 22:50 → 3NE 02-19 15:30
PROVIDERS: ADMIT Internal Medicine; ATTEND Internal Medicine
PROC: 5A1945Z Respiratory Ventilation, 24-96 Consecutive Hours (ICD-10-PCS; principal; 2018-02-15)
PROC: 0BH17EZ Insertion of Endotracheal Airway into Trachea, Via Natural or Artificial Opening (ICD-10-PCS; 2018-02-15)
PROC: 0D9670Z Drainage of Stomach with Drainage Device, Via Natural or Artificial Opening (ICD-10-PCS; 2018-02-15)
DX: J96.21 Acute and chronic respiratory failure with hypoxia (principal); E43 Unspecified severe protein-calorie malnutrition; G93.41 Metabolic encephalopathy; J18.9 Pneumonia, unspecified organism; J44.1 Chronic obstructive pulmonary disease with (acute) exacerbation; J44.0 Chronic obstructive pulmonary disease with (acute) lower respiratory infection; E87.2 Acidosis; I42.9 Cardiomyopathy, unspecified; J98.11 Atelectasis; Z99.11 Dependence on respirator [ventilator] status; J96.22 Acute and chronic respiratory failure with hypercapnia; R53.81 Other malaise; E55.9 Vitamin D deficiency, unspecified; E11.65 Type 2 diabetes mellitus with hyperglycemia; T38.0X5A Adverse effect of glucocorticoids and synthetic analogues, initial encounter; J20.9 Acute bronchitis, unspecified; Y95 Nosocomial condition; D53.9 Nutritional anemia, unspecified; D75.89 Other specified diseases of blood and blood-forming organs; F12.90 Cannabis use, unspecified, uncomplicated; I35.8 Other nonrheumatic aortic valve disorders; Z80.6 Family history of leukemia; Z82.49 Family history of ischemic heart disease and other diseases of the circulatory system; Z59.0 Homelessness; Z99.81 Dependence on supplemental oxygen; Z72.0 Tobacco use; Z68.22 Body mass index [BMI] 22.0-22.9, adult
CPT/HCPCS: 36415; 36600; 99285; J3490; J7611; J7613; J7620; 71045; 76700; 80048; 80053; 80061; 80307; 80329; 81003; 82306; 82533; 82607; 82803; 83036; 83605; 83735; 83880; 84100; 84439; 84443; 84478; 84484; 85025; 85610; 85730; 87040; 87070; 87077; 87081; 87186; 87205; 93005; 93306; 94002; 94003; 94150; 94640; 94644; 94664; G0378; J0696; J1644; J2250; J2543; J2704; J3010; J3370; J7060; P9045; G0480; J0330; J2060; J2270; J2930; J3475; J7030; J7050; J7512

== ENCOUNTER 2018-09-03 23:52 | Emergency (ER) | payer MEDICAID ==
[~2018-09-03] VITALS: Ht 157.5 cm; Wt 72.0 kg
[~2018-09-03 23:52] MED LIST changes: +DOXY100T PO; +ERGO500017 PO; -ETOMIDATE 20 MG/10 ML ONE; +IPRA3AMP30 NPPB; +PRED5TAB PO; -PROPOFOL 10 MG/ML, 100ML IV ONE; -SUCCINYLCHOLINE 20 MG/ML, 10ML ONE
[2018-09-04] MEDS ORDERED: ALBUTEROL 0.5%, 20ML ONE
[2018-09-04] MEDS ORDERED: ALBUTEROL 0.5%, 20ML NPPB SCH
--- NOTE | 2018-09-04 | NUR ---
RESP TX UNDER WAY. PT REPORTS BREATHING IS IMPROVED
[2018-09-04 00:10] LABS: BASOPHILS # (AUTO) 0.06 x10^3/uL (0-0.1); BASOPHILS % (AUTO) 1 % (0-1); EOSINOPHILS % (AUTO) 3 % (1-7); LYMPHOCYTES # (AUTO) 1.29 x10^3/uL (1-3.4); LYMPHOCYTES % (AUTO) 21 % (22-44); MD NO; MEAN CORPUSCULAR HGB CONC 32.8 g/dL (33.2-36.2); MEAN CORPUSCULAR VOLUME 97.5 fL (81-97); MEAN PLATELET VOLUME 7.8 fL (7.4-10.4); MONOCYTES # (AUTO) 0.88 x10^3/uL (0.2-0.8); MONOCYTES % (AUTO) 14 % (2-9); NEUTROPHILS # (AUTO) 3.78 x10^3/uL (1.8-6.8); NEUTROPHILS % (AUTO) 61 % (42-75); PLATELET COUNT 326 x10^3/uL (130-400); RED BLOOD COUNT 4.98 x10^6/uL (4.38-5.82)
[2018-09-04 00:26] LABS: ALANINE AMINOTRANSFERASE 22 U/L (12-78); ALBUMIN 3.8 g/dL (3.4-5.0); ANION GAP 6 mmol/L (5-15); CALCIUM 8.8 mg/dL (8.5-10.1); CHLORIDE 105 mmol/L (98-107); CREATININE 0.85 mg/dL (0.7-1.3)
[2018-09-04 00:31] LABS: ALKALINE PHOSPHATASE 65 U/L (45-117); BILIRUBIN,TOTAL 0.4 mg/dL (0.2-1.0); TOTAL PROTEIN 7.7 g/dL (6.4-8.2); TROPONIN I < 0.015 ng/mL (0.000-0.045)
[2018-09-04 02:02] VITALS: BP 118/64
== END 2018-09-04 02:04 | disposition home or self-care (01) ==
LOC: ED 09-04 00:33
DX: J96.11 Chronic respiratory failure with hypoxia (principal); J44.1 Chronic obstructive pulmonary disease with (acute) exacerbation; Z87.891 Personal history of nicotine dependence
CPT/HCPCS: 36415; 71045; 80053; 84484; 85025; 93005; 94644; 99284